=== PATIENT | female | born 1960 | race Caucasian/White ===

== ENCOUNTER 2018-01-16 15:19 | Emergency (ER) | payer BC ==
[~2018-01-16] VITALS: Ht 167.6 cm; Wt 86.2 kg
--- NOTE | ~2018-01-16 | EKG ---
[place] [address] [address] [facility] [place] [address] ELECTROCARDIOGRAM REPORT Name: LEILANI JAMIL [id number] Admission: 01/16/18 Attend Phys: Discharge: 01/16/18 Date of : 64 Report #: [id number] THIS REPORT FOR: //name// [facility] ED Test Date: 2018-01-16 Test Time: 15:26:20 Pat Name: LEILANI JAMIL Department: Room: Gender: F Computer Engineer: [facility] : 1960 Requested By: Carlos A Chamberlain Order Number: [id number] MD: Arvind Valdez Measurements Intervals [place] Rate: 93 P: NE: QRS: -18 QRSD: 100 T: 15 QT: 375 QTc: 467 Interpretive Statements Sinus rhythm First-degree AV block Borderline left axis deviation No previous ECG available for comparison Electronically Signed On 01-17-2018 10:10:30 FACILITY ENVIRONMENTAL TECHNICIAN by Arvind Valdez [email or web address] <ELECTRONICALLY SIGNED> By: Arvind Valdez MD 01/17/18 1010 1526 1526 Arvind Valdez MD /EPI
[2018-01-16 15:55] LABS: HEMATOCRIT 39.9 % (37.0-47.0); HEMOGLOBIN 13.4 gm/dL (12.0-15.0); MCHC 33.7 g/dL (28.0-37.0); MCV 88.9 fL (80.0-100.0); RBC 4.48 mil/uL (4.20-5.00); RDW 13.4 % (10.5-14.5); WBC 11.4 thou/uL (4.0-11.0)
[2018-01-16 16:05] LABS: ANION GAP 9 mmol/L (7-16); BUN 9 mg/dL (7-18); CALCIUM 8.6 mg/dL (8.5-10.1); CHLORIDE 103 mmol/L (98-107); CO2 29 mmol/L (21-32); CREATININE 0.8 mg/dL (0.6-1.0); GLUCOSE 131 mg/dL (74-106); POTASSIUM 3.8 mmol/L (3.5-5.1); SODIUM 141 mmol/L (136-145)
[2018-01-16 16:13] LABS: ALBUMIN 3.8 g/dL (3.4-5.0); SGOT 23 U/L (15-37); SGPT 36 U/L (30-65); TOTAL BILIRUBIN 0.2 mg/dL (<0.1-1.0); TOTAL PROTEIN 7.3 g/dL (6.4-8.2); TROPONIN-I < 0.04 ng/mL (<0.06)
[2018-01-16] MEDS ORDERED: ESTRADIOL1 EAC8 TRANSDERM (16:15)
[2018-01-16] MEDS ORDERED: PROTONIX 20 MG20 M1 PO (18:23)
== END 2018-01-16 18:55 | disposition home or self-care (01) ==
LOC: ER 15:19
PROVIDERS: Emergency Medicine
DX: R07.9 Chest pain, unspecified (principal)